=== PATIENT | female | born 1975 | race Caucasian/White ===

== ENCOUNTER 2023-06-07 10:09 | Emergency (ER) | payer OTHER, SELFPAY ==
[2023-06-07 10:13] VITALS: BP 130/92; PULSE 119; RESP 18; TEMP 36.6; O2SAT 97; BMI 26.9
[2023-06-07 10:32] VITALS: BP 138/83; PULSE 89; RESP 18; TEMP 36.9; O2SAT 96
[2023-06-07 10:39] VITALS: BP 138/83; PULSE 89; RESP 18; TEMP 36.9; O2SAT 97; BMI 25.7
--- NOTE | 2023-06-07 10:55 | ED.ANXIETY ---
HPI - Anxiety General Chief Complaint: Anxiety Stated Complaint: anxiety Time Seen by Provider: 06/07/23 10:35 Source: patient and family Mode of arrival: ambulatory History of Present Illness HPI narrative: 47-year-old female who presents with a recent loss of her uncle with whom she was very close, and thereafter developed insomnia which she thinks is significantly contributing to her anxiety and OCD. Her primary care doctor has been attempting to treat her with trazodone and Seroquel but patient states that this is not been helping at all. She denies any SI/HI and states that her last event occurred approximately 10 days ago and she was treated with Zoloft and states that the episodes seemed self resolve. She otherwise denies any medical history. Patient agreeable to meet with the crisis team. Related Data Allergies Allergy/AdvReac Type Severity Reaction Status Date / Time metoclopramide [From Reglan] AdvReac Anxiety Verified 06/07/23 10:40 Review of Systems Review of Systems: Pertinent positives and negatives as stated in HPI PMFSH Past Medical History Source: nursing notes reviewed Social History Social History Advance Directives: No Advance Directives Information Provided: Yes Do you have a plan to hurt others: No Plan Physical Exam Vital Signs: Vital Signs: Last Vital Signs Temp 98.5 F 06/07/23 10:39 Pulse 89 06/07/23 10:39 Resp 18 06/07/23 10:39 BP 138/83 06/07/23 10:39 Pulse Ox 97 06/07/23 10:39 O2 Del Method Room Air 06/07/23 10:39 BMI result Body Mass Index 25.7 VITAL SIGNS: Reviewed. GENERAL: Well developed, well nourished, in no acute distress. HEAD: Normocephalic/atraumatic EYES: PERRLA, EOMI EARS: Ext canals without abnormality NOSE: Nares patent bilateral OROPHARYNX: no oral lesions noted, posterior pharynx clear NECK: Supple, no adenopathy LUNGS: Normal breath sounds. No adventitious sounds or accessory muscle use. SpO2<97> CARDIOVASCULAR: Regular rate and rhythm without noted murmurs ABDOMEN: Soft, non-tender, non-distended with bowel sounds MUSCULOSKELETAL: No tenderness, deformities, or effusions noted on gross inspection. EXTREMITIES: No cyanosis, clubbing or edema. SKIN: Inspection of the skin reveals no rashes NEUROLOGIC: Alert and oriented x 4. Strength and sensation to light touch were grossly intact x 4, cranial nerves 2-12 are grossly intact PSYCH: Anxiety, depressed affect. Medications Administered Discontinued Medications Generic Name Dose Route Start Last Admin Trade Name Brooke PRN Reason Stop Dose Admin Diazepam 2 mg 06/07/23 10:54 06/07/23 11:08 Diazepam 2 Mg Tablet PO 06/07/23 10:55 2 mg ONCE ONE Administration Medical Decision Making Medical Decision Making [facility] Narrative: 47-year-old female with history and clinical presentation, DDX: Grief, depression, anxiety Provided patient with 2 mg Valium I reviewed all investigations and hematologic indices are negative for leukocytosis/anemia/thrombocytopenia. Chemistries to seizure negative for BG/electrolyte or liver enzyme derangements. Ethanol-undetectable. Patient is otherwise medically cleared for further evaluation by the care team. Patient evaluated by the care team and they feel that she is stable with discharge and they have provided patient with out patient resources and access, patient was encouraged to return should she feel that she may be a harm to herself. She does feel somewhat better and is otherwise discharged. Differential Diagnosis Differential Diagnoses: The differential diagnosis associated with the presentation includes Please see the discussion above Admission/Observation Consideration of admission/observation: Escalation of care including admission/observation considered Please see the discussion above Lab Data [facility] Lab Attestation statement: I reviewed the patient's lab results. Please see the discussion above 06/07/23 11:26 06/07/23 11:26 Labs: Lab Results 06/07/23 Range/Units 11:26 WBC 9.5 (4.8-10.8) X10*3/uL RBC 4.46 (4.20-5.50) X10*6/uL Hgb 14.2 (12.0-16.0) g/dl Hct 41.2 (37.0-47.0) % MCV 92.4 (80.0-98.0) fL MCH 31.8 (27.0-33.0) pg MCHC 34.5 (31.0-35.0) g/dl RDW 12.7 (11.0-16.0) % Plt Count 185 (160-400) X10*3/uL MPV 12.9 H (9.4-12.3) fL Immature Gran % (Auto) 0.1 (0.0-0.4) % Neut % (Auto) 78.9 H (45-73) % Lymph % (Auto) 11.6 L (20-40) % [place] % (Auto) 8.6 (2-11) % Eos % (Auto) 0.3 (0-4) % Baso % (Auto) 0.5 (0-2) % Lymph # (Auto) 1.1 L (1.2-4.9) X10*3/uL [place] # (Auto) 0.8 (0.1-1.2) X10*3/uL Eos # (Auto) 0.0 (0.0-0.4) X10*3/uL Baso # (Auto) 0.1 (0.0-0.2) X10*3/uL Abs Immat Gran (auto) 0.01 (0.00-0.03) X10*3/uL Absolute Neuts (auto) 7.5 (2.0-8.3) x10*3/uL Absolute Nucleated RBC 0.000 (0.0-0.012) X10*3/uL Nucleated RBC % (auto) 0.0 (0.0-0.2) /100WBC Sodium 140 (135-145) mmol/L Potassium 4.3 (3.3-5.1) mmol/L Chloride 106 (96-108) mmol/L Carbon Dioxide 26 (22-29) mmol/L Anion Gap 12 (12-20) BUN 11 (9-16) mg/dL Creatinine 0.86 (0.5-1.4) mg/dL Estim Creat Clear Calc 78.3 Estimated GFR > 60 Random Glucose 82 (60-115) mg/dL Calcium 9.3 (8.4-10.2) mg/dL Total Bilirubin 0.7 (0.0-1.0) mg/dL AST 15 (5-31) U/L ALT 14 (0-31) U/L Alkaline Phosphatase 71 (39-117) U/L Total Protein 6.9 (6.5-8.0) g/dL Albumin 4.1 (3.5-5.0) g/dL Ethyl Alcohol < 10 mg/dL Critical Care Time Critical Care Time Critical Care Time: Yes Total Critical Care Time: 45 Attestation: I personally attest to this time spent taking care of the patient. Discharge Plan Discharge Clinical Impression: Acute anxiety, Grief, Depression Patient Disposition: Home, Self-Care Instructions: Depression (ED), Anxiety (ED) Additional Instructions: Follow-up with your primary care doctor to further discuss prescription sleep medication. Do not hesitate to return to this emergency room if you ever began having feelings of wanting to harm yourself. Referrals: Betzy Germain NP [Nurse Practitioner] - Print Language: Uruguayan
[2023-06-07] MEDS: diazePAM 2 MG TABLET PO (11:08)
[2023-06-07 11:30] LABS: MANUAL DIFF FLAG NO
[2023-06-07 11:31] LABS: Basophils Absolute Auto 0.1 X10*3/uL (0.0-0.2); Basophils Percent Auto 0.5 % (0-2); Eosinophils Percent Auto 0.3 % (0-4); Hematocrit 41.2 % (37.0-47.0); Hemoglobin 14.2 g/dl (12.0-16.0); Imm Gran Abs Auto 0.01 X10*3/uL (0.00-0.03); Imm Gran Pct Auto 0.1 % (0.0-0.4); Lymphocytes Absolute Auto 1.1 X10*3/uL (1.2-4.9); Lymphocytes Percent Auto 11.6 % (20-40); Mean Corpuscular HGB Conc 34.5 g/dl (31.0-35.0); Mean Corpuscular Hemoglobin 31.8 pg (27.0-33.0); Mean Corpuscular Volume 92.4 fL (80.0-98.0); Mean Platelet Volume 12.9 fL (9.4-12.3); Monocytes Absolute Auto 0.8 X10*3/uL (0.1-1.2); Monocytes Percent Auto 8.6 % (2-11); Neutrophils Absolute Auto 7.5 x10*3/uL (2.0-8.3); Neutrophils Percent Auto 78.9 % (45-73); Platelet Count 185 X10*3/uL (160-400); Red Blood Count 4.46 X10*6/uL (4.20-5.50); Red Cell Distribution Width 12.7 % (11.0-16.0); White Blood Count 9.5 X10*3/uL (4.8-10.8)
[2023-06-07 11:46] LABS: Alanine Aminotransferase 14 U/L (0-31); Albumin Level 4.1 g/dL (3.5-5.0); Alkaline Phosphatase 71 U/L (39-117); Anion Gap 12 (12-20); Aspartate Amino Transferase 15 U/L (5-31); Bilirubin Total 0.7 mg/dL (0.0-1.0); Blood Urea Nitrogen 11 mg/dL (9-16); Calcium 9.3 mg/dL (8.4-10.2); Carbon Dioxide 26 mmol/L (22-29); Chloride 106 mmol/L (96-108); Creatinine Clr Calc Pharmacy 78.3; Estimated Glomerular Filt Rate > 60; Ethanol < 10 mg/dL; Glucose Random 82 mg/dL (60-115); Potassium 4.3 mmol/L (3.3-5.1); Sodium 140 mmol/L (135-145); Total Protein 6.9 g/dL (6.5-8.0)
[2023-06-07 12:49] LABS: HCG Quantitative < 2 mIU/mL
[2023-06-07 13:13] VITALS: BP 136/87; PULSE 106; RESP 18; TEMP 36.9; O2SAT 97
== END 2023-06-07 13:14 | disposition home or self-care (01) ==
PROVIDERS: Emergency Provider Student in an Organized Health Care Education/Training Program
DX: F41.9 Anxiety disorder, unspecified (principal); F43.21 Adjustment disorder with depressed mood; F32.A Depression, unspecified
CPT/HCPCS: 36415; 80053; 80307; 84702; 85025; 99283; S9485

== ENCOUNTER → 2023-07-04 09:00 | Outpatient (BNV) | payer OTHER, SELFPAY | PROVIDERS: Visit Provider Psychiatry & Neurology Psychiatry | DX: F42.9 Obsessive-compulsive disorder, unspecified (principal); F41.1 Generalized anxiety disorder | CPT/HCPCS: 90792; 99213; 99499 ==

== ENCOUNTER 2023-07-18 09:00 | Outpatient (RCR) | payer OTHER, SELFPAY ==
[2023-07-04 13:04] VITALS: BP 110/88; PULSE 85; TEMP 37.3
[2023-07-04 13:06] VITALS: BMI 25.5
--- NOTE | 2023-07-04 13:51 | PC.NURSE ---
Patient is a 47 year old female who was referred to PHP by crisis and also advised to attend PHP by her PCP d/t increased depression, was having passive suicidal thoughts a few weeks ago stating she would be better off , struggling with an increase in OCD sxs with excessive hand washing and fixated on germs. Reports insomnia sleeping 1/2-1 hr a night even with Trazodone. Patient also attended Respite for one day after meeting with crisis however went for one day and left as there were too many people there. Patient is alert and oriented x4. Calm and cooperative. Thoughts are clear and logical. Presented with depressed mood, anxious, tearful affect at times. Denied SI, no HI. She was given a copy of her safety plan if needed. Reports stressors including work hour changes, uncle passing, finalization of divorce, and recently found out her boyfriend of a year was cheating on her. Patient reports she was drinking 2 shots of Vodka after work daily however has stopped alcohol use for the past few months. Reports she has cut down her caffeine intake and is planning on cutting down smoking cigarettes a few hours before bed. She stated she quit smoking and recently started back up d/t her symptoms. Does not want to quit at this time. She describes her self as a germophobe' who has been excessively washing her hands d/t increase in her OCD sxs. Medications reconciled with patient and patient's pharmacy. She stated she is not taking Seroquel anymore as she did not like the way it made her feel. Taking all other medications as prescribed. 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 She is taking a HAYLEY from work d/t her mental health.
--- NOTE | 2023-07-04 15:07 | HO.PHP ---
Client's case has been opened and reviewed in treatment team.
--- NOTE | 2023-07-04 21:49 | P.HPPSP_ITS ---
HPI Date of Service: 07/04/23 Chief Complaint: OCD Sources of Information: patient interviewed, chart reviewed and crisis/core team assessment reviewed HPI Narrative: Patient is a 47 year old female, with history of OCD, generalized anxiety who was referred by her PCP office for [facility] Crisis eval for worsening anxiety, depression, OCD symptoms in the context of psychosocial stressors including familial loss, divorce and other relationship stressors. She reports a history of depression back in 2008, was on Zoloft for a few years and then remained relatively stable even off medication for the past 10 years until a recent string of setbacks and losses. Everything happened all at once . She reports finding out her boyfriend cheated on her in March just after losing her uncle earlier that month due to a hospital-inquired infection, which likely exacerbated her OCD-obsessions with contamination/germaphobia, as well as triggering grief related to losing her father 17 yrs ago. She also reports just getting through a nasty divorce in May, but continuing to deal with her ex with whom she shares custody of their children. She reports her mood as very depressed, high anxiety, profound anhodenia with feelings of helplessness, hopelessness and passive SI. Sleep is particularly problematic. She states she is exhausted but has been unable to sleep, appetite and energy are low. Past Psychiatric History: No IPLOC or detox admissions Engaged in [facility] [employer] x2 back in 2011 at [place] Denies any suicide attempts or self harming behaviors Hx of Depression (after her 2nd child in 2008) was treated for 2-3 years, namely on Zoloft, has been off medications for 10 years Long hx of OCD (germs/handwashing) since teens/early adulthood Therapist: Yaquelin Jones [facility] Psych provider: none PCP: Betzy Germain INTERNAL MEDICINE PHYSICIAN ASSISTANT Previous trials: Zoloft (helped with PPD, not so much for OCD), Seroquel 100 mg (did not help with sleep), hydroxyzine CURRENT MEDICATIONS: Lexapro 5 mg qd (started 3 weeks ago) trazodone 50-100 mg qhs PRN sleep ( not helping ) hydroxyzine 25 mg TID prn (1-2 times daily, makes me tired during the day but not helping with sleep) vitamin B complex [facility] Medical History (Updated 07/09/23 @ 07:56 by Heidi Ibarra MD) delivery delivered Family History: Anxiety on paternal side Social History: . 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, was rehired doing administrative transfers Substance History: Denies Trauma History: Denies Diagnostics Vital Signs (24Hr): Vital Signs - 24 hr 07/04/23 13:04 Temperature 99.2 F Pulse Rate 85 Blood Pressure 110/88 BMI result Body Mass Index 25.5 Meds/Allergies Meds Home Medications ?Medication ?Instructions ?Recorded ?Confirmed ?Type vitamin B complex 1 cap PO DAILY 07/04/23 07/04/23 History Allergies Allergies Allergy/AdvReac Type Severity Reaction Status Date / Time metoclopramide [From Reglan] AdvReac Anxiety Verified 06/07/23 10:40 Mental Status Exam Mental Status Exam Narrative: Alert, oriented, in no acute distress. Anxious, cooperative, engaged. No psychomotor agitation or neurovegetative retardation. Eye contact maintained. Mood depressed, affect dysphoric, anxious, tearfulness. Speech normal. Thought process scattered, linear, coherent. Thought content related to stressors, feeling overwhelmed, exhausted, endorses executive dysfunction, feelings of helplessness, hopelessness, passive SI, without suicidal intention,urge or plan. Denies any aggressive ideation. No paranoia or delusional content elicited. No evidence of psychosis. Insight and judgment fair but adequate. Assessment & Plan Assessment & Plan (1) Obsessive compulsive disorder: Status: Acute Code(s): F42.9 - Obsessive-compulsive disorder, unspecified (2) Generalized anxiety disorder: Status: Acute Code(s): F41.1 - Generalized anxiety disorder Plan Admit to PHP VS reviewed: rhona, BP 110/88;?85 bpm start Luvox 25 mg qhs, plan to titrate to 50 mg qhs (in 2-4 days, as tolerated) start clonazepam 1 mg qhs PRN sleep (other considerations include olanzapine for sleep vs zolpidem (patient reluctant to start olanzapine given tiredness experienced on quetiapine) may also consider risperidone to target OCD sx as well as sleep continue other regular medications? if Luvox tolerated, will taper off Lexapro will switch trazodone to PRN basis and likely discontinue due to drug interactions with fluvoxamine/SSRIs Routine lab work ordered EKG, routine for baseline QTc for medication considerations UDS as indicated MassPat reviewed Safety plan reviewed Continue to monitor as per protocol Patient educated on: diagnosis, medication risk/benefits and substance abuse Informed Consent: understands Reason for continued partial hosp. stay Substantial Risk for: harm to self, inability to function, rapid decompensation and med/psych decompensation Certification I certify that partial hospital treatment is medically necessary due to the symptoms and problems resulting from the patient's mental illness and the failure to treat the patient at the partial hospital level of care would likely result in the patient requiring inpatient psychiatric care which could not be prevented at a less intensive level of care. Time Spent With Patient Time: Total time managing care of this patient today _60___ minutes.
--- NOTE | 2023-07-09 23:14 | HO.PHPPROGNO ---
Subjective Subjective Date of Service: 07/09/23 Reason For Visit: OCD Interim History: Patient has been taking 50 mg of fluvoxamine at night, sleep has improved modestly but still feeling tired in the morning and all day. She reports her mood as tired anxiety has been ok . She says SI is still there but in the background. She continues to take clonazepam at 0.5 mg in AM and 1.5 mg qhs. I suggest we start lowering the clonazepam which may be exacerbating her tiredness. Also given plan to continue titrating fluvoxamine, will need to cut back on clonazepam during the day and suggest taking 1/4 tablet once or twice a day for anxiety but on an as needed only basis now. She denies any thoughts of harming self or others at this time. OCD symptoms persist unchanged. Medication Compliance: Yes Side effects from medications: Yes (as noted) Attending Groups: Yes Review of Systems Acute medical concerns: No Mental Status Exam Mental Status Exam Narrative: Alert, oriented, in no acute distress. Anxious, cooperative, engaged. No psychomotor agitation or neurovegetative retardation. Eye contact maintained. Mood depressed, affect dysphoric, anxious, tearfulness. Speech normal. Thought process scattered, linear, coherent. Thought content related to stressors, feeling overwhelmed, exhausted, endorses executive dysfunction, feelings of helplessness, hopelessness, passive SI, without suicidal intention,urge or plan. Denies any aggressive ideation. No paranoia or delusional content elicited. No evidence of psychosis. Insight and judgment fair but adequate. Diagnostics Vital Signs (24Hr): BMI result Body Mass Index 25.5 Assessment & Plan Assessment & Plan (1) Obsessive compulsive disorder: Status: Acute Code(s): F42.9 - Obsessive-compulsive disorder, unspecified (2) Generalized anxiety disorder: Status: Acute Code(s): F41.1 - Generalized anxiety disorder Plan increase Luvox to 75 mg/d starting tomorrow, by end of week will increase to ER formulation 100 mg/d lower clonazepam to 0.25-0.5 mg PRN anxiety and lower HS dose to 1 mg Patient educated on: diagnosis and medication risk/benefits Informed Consent: understands Reason for contiued partial hosp. stay Substantial Risk for: inability to function, rapid decompensation and med/psych decompensation Certification I certify that partial hospital treatment is medically necessary due to the symptoms and problems resulting from the patient's mental illness and the failure to treat the patient at the partial hospital level of care would likely result in the patient requiring inpatient psychiatric care which could not be prevented at a less intensive level of care. Total time managing care of this patient today __30__ minutes. Discharge Plan Discharge Attending provider: Heidi Ibarra Additional Instructions: Gaby has a med provider appointment scheduled for August 01, 2023 at 9:40 AM via telehealth with Joey Singh through [facility]. Gaby has an OP therapy appointment with Lea Hodge which is scheduled on July 22, 2023 at 11 AM at the [address] [place] [address]. Medications: New fluvoxamine 100 mg capsule,extended release 24hr 100 mg PO BEDTIME Qty: 30 0RF risperidone 0.25 mg tablet 0.25 - 0.5 mg PO BEDTIME Qty: 30 0RF acetylcysteine 600 mg capsule 600 mg PO DAILY Qty: 30 0RF fluvoxamine 50 mg tablet 50 mg PO QAM 30 Days Qty: 30 0RF Rx Instructions: =DOSE CHANGE= fluvoxamine 100 mg tablet 100 mg PO BEDTIME 30 Days Qty: 30 0RF Rx Instructions: =DOSE CHANGE= Continued vitamin B complex Capsule 1 cap PO DAILY clonazepam 1 mg tablet See Rx Instructions .ROUTE .COMPLEX Qty: 30 0RF Rx Instructions: administer 30 minutes before bedtime; take 1/2 tablet in AM prn anxiety; take 1 tablet po qhs prn sleep Changed fluvoxamine 50 mg tablet 50 mg PO BEDTIME Qty: 30 0RF Discontinued trazodone 50 mg Tablet 50 - 100 mg PO BEDTIME PRN (Reason: Insomnia) Rx Instructions: May increase to 2 tabs if needed. hydroxyzine HCl 25 mg tablet 25 mg PO TID PRN (Reason: anxiety) escitalopram oxalate 5 mg tablet 5 mg PO DAILY Stand Alone Forms: Patient Portal Discharge page Patient Education: Generalized Anxiety Disorder (GEN) Print Language: Kinyarwanda
--- NOTE | 2023-07-11 16:33 | HO.PHP ---
Gaby was not scheduled for program today due to having a med provider appointment today through [facility]. Gaby will be in attendance to program tomorrow.
--- NOTE | 2023-07-15 23:15 | HO.PHPPROGNO ---
Subjective Subjective Date of Service: 07/15/23 Reason For Visit: OCD Interim History: Patient seen for follow-up Continues on fluvoxamine, currently at 75 mg. OCD symptoms are still pretty consuming, causing anxiety and really impacting her mood. WIll plan to increase to 100 mg ER at the end of the week. We discussed addition of risperidone to target OCD symptoms and anxiety. She reports some on and off again nausea, she reports having gotten over her period 6 days ago, but note that she has been experiencing heavier periods sometimes lasting over 2 weeks at atime, occurring every 3 weeks so spending more of the time bleeding on a monthly basis. Nausea seems to be related but is difficult to tell if medication could also be exacerbating this. She has still not gotten her routine lab work done but plans to do so today. Denies any SI currently but is still feeling depressed she Reports transient SI without urge, intention or plan. Medication Compliance: Yes Side effects from medications: No Attending Groups: Yes Review of Systems Acute medical concerns: No Mental Status Exam Mental Status Exam Narrative: Alert, oriented, in no acute distress. Eye contact maintained. Mood anxious, depressed, affect constricted, anxious. Speech normal. Thought process scattered, linear, coherent. Thought content related to stressors, feelings of helplessness, transient passive SI, without suicidal intention,urge or plan. Denies any aggressive ideation. No paranoia or delusional content elicited. No evidence of psychosis. Insight and judgment fair but adequate. Diagnostics Vital Signs (24Hr): BMI result Body Mass Index 25.5 Assessment & Plan Assessment & Plan (1) Obsessive compulsive disorder: Status: Acute Code(s): F42.9 - Obsessive-compulsive disorder, unspecified (2) Generalized anxiety disorder: Status: Acute Code(s): F41.1 - Generalized anxiety disorder Plan start risperidone 0.25 mg qhs continue Luvox 75 mg/d starting tomorrow, will increase to ER formulation 100 mg/d in 4 days continue clonazepam 1 mg QHS and to 0.25-0.5 mg PRN anxiety start NAC 600 mg qd - to help target OCD sx (Clin Psychopharmacol Neurosci 2015 May;13(1):12-24) pending lab work continue to monitor Patient educated on: diagnosis and medication risk/benefits Informed Consent: understands Reason for contiued partial hosp. stay Substantial Risk for: inability to function and med/psych decompensation Certification I certify that partial hospital treatment is medically necessary due to the symptoms and problems resulting from the patient's mental illness and the failure to treat the patient at the partial hospital level of care would likely result in the patient requiring inpatient psychiatric care which could not be prevented at a less intensive level of care. Total time managing care of this patient today _30___ minutes. Discharge Plan Discharge Attending provider: Heidi Ibarra Additional Instructions: Gaby has a med provider appointment scheduled for August 01, 2023 at 9:40 AM via telehealth with Joey Singh through [facility]. Gaby has an OP therapy appointment with Lea Hodge which is scheduled on July 22, 2023 at 11 AM at the [facility]. Medications: New fluvoxamine 100 mg capsule,extended release 24hr 100 mg PO BEDTIME Qty: 30 0RF risperidone 0.25 mg tablet 0.25 - 0.5 mg PO BEDTIME Qty: 30 0RF acetylcysteine 600 mg capsule 600 mg PO DAILY Qty: 30 0RF fluvoxamine 50 mg tablet 50 mg PO QAM 30 Days Qty: 30 0RF Rx Instructions: =DOSE CHANGE= fluvoxamine 100 mg tablet 100 mg PO BEDTIME 30 Days Qty: 30 0RF Rx Instructions: =DOSE CHANGE= Continued vitamin B complex Capsule 1 cap PO DAILY clonazepam 1 mg tablet See Rx Instructions .ROUTE .COMPLEX Qty: 30 0RF Rx Instructions: administer 30 minutes before bedtime; take 1/2 tablet in AM prn anxiety; take 1 tablet po qhs prn sleep Changed fluvoxamine 50 mg tablet 50 mg PO BEDTIME Qty: 30 0RF Discontinued trazodone 50 mg Tablet 50 - 100 mg PO BEDTIME PRN (Reason: Insomnia) Rx Instructions: May increase to 2 tabs if needed. hydroxyzine HCl 25 mg tablet 25 mg PO TID PRN (Reason: anxiety) escitalopram oxalate 5 mg tablet 5 mg PO DAILY Stand Alone Forms: Patient Portal Discharge page Patient Education: Generalized Anxiety Disorder (GEN) Print Language: Hungarian
--- NOTE | 2023-07-16 10:06 | HO.PHP ---
Gaby was not scheduled for today due to having a med provider appointment.
--- NOTE | 2023-07-17 13:19 | HO.PHP ---
[facility] staff member faxed a referral over to [facility] for OP therapy and Med Management for Gaby. PHP staff member is awaiting a call with scheduled appointment times and dates.
--- NOTE | 2023-07-18 22:02 | HO.PHPPROGNO ---
Subjective Subjective Date of Service: 07/18/23 Reason For Visit: OCD Interim History: Patient seen for follow-up, anticipating discharge at the end of program today.? She reports having gone to lab to get her lab work done an hour ago. SHe says she kept forgetting to get it done earlier in the week. Mood is still depressed but has tried to stay productive, focused on self care and daily tasks. Continues to take medications daily and is on fluvoxamine which was split in 25 mg in am and 50 mg at night. Sleep has been not great , risperidone only started on this last night at 1/2 tablet thus far. Also she has tried cutting back on clonazepam to 1 mg and 0.5 mg in AM, alternatively can just take 1.5 mg at night especially if tired in the AM and may help more with sleep. She is due to switch to taking long acting fluvoxamine at 100 mg starting tonight and will continue at 100 mg ER qhs until she follows up with her provider. She has upcoming appointment on 07/21 and 07/31 for therapy and med provider. Denies thoughts of harming self or others at this time. Denies any aggressive ideation or HI. Denies any paranoia or AH or VH. Medication Compliance: Yes Side effects from medications: No Attending Groups: Yes Review of Systems Acute medical concerns: No Mental Status Exam Mental Status Exam Narrative: Alert, oriented, in no acute distress. Eye contact maintained. Mood depressed but stable. Affect subdued. Speech normal. Thought process linear, coherent. Thought content related to stressors, passive SI, without suicidal intention,urge or plan. Denies any aggressive ideation. No paranoia or delusional content elicited. No evidence of psychosis. Insight and judgment fair but adequate. Diagnostics Vital Signs (24Hr): BMI result Body Mass Index 25.5 Assessment & Plan Assessment & Plan (1) Obsessive compulsive disorder: Status: Acute Code(s): F42.9 - Obsessive-compulsive disorder, unspecified (2) Generalized anxiety disorder: Status: Acute Code(s): F41.1 - Generalized anxiety disorder Plan Discharge from [facility] continue fluoxamine, increasing to ER 100 mg qhs starting tonight (from IR 75 mg/d) continue risperidone 0.25 - 0.5 mg qhs continue NAC 500-1000 mg qd as tolerated continue other regular medications Refills sent to pharmacy Will defer further medication management to outpatient provider *Safety plan reviewed *Discharge Diagnoses reviewed with patient, as well as treatment course, discharge plan (including medication regime, medication management, potential side effects) as well as treatment rationale were also revisited Patient educated on: diagnosis and medication risk/benefits Guardian/Caregiver educated on: TMS Informed Consent: understands Reason for contiued partial hosp. stay Substantial Risk for: stable for discharge Certification I certify that partial hospital treatment is medically necessary due to the symptoms and problems resulting from the patient's mental illness and the failure to treat the patient at the partial hospital level of care would likely result in the patient requiring inpatient psychiatric care which could not be prevented at a less intensive level of care. Total time managing care of this patient today ____ minutes. Discharge Plan Discharge Attending provider: Heidi Ibarra Additional Instructions: Gaby has a med provider appointment scheduled for August 01, 2023 at 9:40 AM via telehealth with Joey Singh through [facility]. Gaby has an OP therapy appointment with Lea Hodge which is scheduled on July 22, 2023 at 11 AM at [address] [place] [address]. Medications: New fluvoxamine 100 mg capsule,extended release 24hr 100 mg PO BEDTIME Qty: 30 0RF risperidone 0.25 mg tablet 0.25 - 0.5 mg PO BEDTIME Qty: 30 0RF acetylcysteine 600 mg capsule 600 mg PO DAILY Qty: 30 0RF fluvoxamine 50 mg tablet 50 mg PO QAM 30 Days Qty: 30 0RF Rx Instructions: =DOSE CHANGE= fluvoxamine 100 mg tablet 100 mg PO BEDTIME 30 Days Qty: 30 0RF Rx Instructions: =DOSE CHANGE= Continued vitamin B complex Capsule 1 cap PO DAILY clonazepam 1 mg tablet See Rx Instructions .ROUTE .COMPLEX Qty: 30 0RF Rx Instructions: administer 30 minutes before bedtime; take 1/2 tablet in AM prn anxiety; take 1 tablet po qhs prn sleep Changed fluvoxamine 50 mg tablet 50 mg PO BEDTIME Qty: 30 0RF Discontinued trazodone 50 mg Tablet 50 - 100 mg PO BEDTIME PRN (Reason: Insomnia) Rx Instructions: May increase to 2 tabs if needed. hydroxyzine HCl 25 mg tablet 25 mg PO TID PRN (Reason: anxiety) escitalopram oxalate 5 mg tablet 5 mg PO DAILY Stand Alone Forms: Patient Portal Discharge page Patient Education: Generalized Anxiety Disorder (GEN) Print Language: Norwegian
--- NOTE | 2023-07-19 15:10 | PM.EVENT ---
Event Note Date of Service: 07/19/23 Event Note: Spoke with patient, she reports that pharmacy does not have long acting and is requesting refill of short acting for 50 mg BID which was sent. Reviewed lab work that has returned thus far thus far CBC, electrolytes, LFTs, glucose, pending results on remainder of labs. Time Spent With Patient Time: Total time managing care of this patient today __10__ minutes.
== END 2023-07-18 23:59 | disposition home or self-care (01) ==
LOC: HO.PHPA 09:00
PROVIDERS: Visit Provider Psychiatry & Neurology Psychiatry
DX: F42.9 Obsessive-compulsive disorder, unspecified (principal); F41.1 Generalized anxiety disorder
CPT/HCPCS: 90791; 90853

== ENCOUNTER 2023-07-18 12:36 | Outpatient (REF) | payer OTHER, SELFPAY ==
[2023-07-18 14:08] LABS: Appearance Urine Turbid; Color Urine Dark Yellow; Glucose Urine UA Negative (Negative); Leukocyte Esterase Urine Negative (Negative); Nitrite Urine Negative (Negative); PH 7.5 (5.0-9.0); UMIC TRIGGER UA YES; Urine Blood Trace (Negative); Urine Ketones Trace mg/dL (Negative); Urine Protein Negative (Neg-Trace)
[2023-07-18 14:10] LABS: Estimated Average Glucose 100 mg/dL; Hemoglobin A1c % 5.1 % (<6.0)
[2023-07-18 14:13] LABS: Bacteria Urine 1+ (None Seen); Hyaline Casts Urine 0-2 /LPF (0-2); WBC Urine 0-5 /HPF (0-5)
[2023-07-18 14:15] LABS: Basophils Percent Auto 0.5 % (0-2); Eosinophils Absolute Auto 0.1 X10*3/uL (0.0-0.4); Eosinophils Percent Auto 1.2 % (0-4); Hematocrit 40.6 % (37.0-47.0); Hemoglobin 13.8 g/dl (12.0-16.0); Imm Gran Abs Auto 0.02 X10*3/uL (0.00-0.03); Imm Gran Pct Auto 0.3 % (0.0-0.4); Lymphocytes Absolute Auto 1.2 X10*3/uL (1.2-4.9); Lymphocytes Percent Auto 15.6 % (20-40); MANUAL DIFF FLAG SCAN; Mean Corpuscular Hemoglobin 32.5 pg (27.0-33.0); Mean Corpuscular Volume 95.5 fL (80.0-98.0); Mean Platelet Volume 13.5 fL (9.4-12.3); Monocytes Absolute Auto 0.6 X10*3/uL (0.1-1.2); Monocytes Percent Auto 7.2 % (2-11); Neutrophils Absolute Auto 5.8 x10*3/uL (2.0-8.3); Neutrophils Percent Auto 75.2 % (45-73); PLT CLUMP 1; Red Blood Count 4.25 X10*6/uL (4.20-5.50); Red Cell Distribution Width 12.7 % (11.0-16.0); SCAN SMEAR FLAG 1
[2023-07-18 14:16] LABS: White Blood Count 7.7 X10*3/uL (4.8-10.8)
[2023-07-18 14:48] LABS: Platelet Count 188 X10*3/uL (160-400)
[2023-07-18 14:50] LABS: SLIDE REVIEW VERIFIED
[2023-07-18 15:07] LABS: Parathyroid Hormone Intact 52.7 pg/mL (8.7-77.1)
[2023-07-18 15:11] LABS: Alanine Aminotransferase 36 U/L (0-31); Albumin Level 4.3 g/dL (3.5-5.0); Alkaline Phosphatase 75 U/L (39-117); Anion Gap 11 (12-20); Aspartate Amino Transferase 16 U/L (5-31); Bilirubin Total 0.7 mg/dL (0.0-1.0); Blood Urea Nitrogen 12 mg/dL (9-16); Calcium 9.5 mg/dL (8.4-10.2); Carbon Dioxide 30 mmol/L (22-29); Chloride 104 mmol/L (96-108); Cholesterol 177 mg/dL (<200); Estimated Glomerular Filt Rate > 60; Glucose Fasting 74 mg/dL (60-99); HDL Cholesterol 50 mg/dL (>40); Iron 66 mcg/dL (30-160); LDL Cholesterol Calculated 101 mg/dL (<100); Magnesium 2.1 mg/dL (1.6-2.6); Percent Iron Saturation 20 % (15-50); Phosphorus 3.2 mg/dL (2.7-4.5); Sodium 141 mmol/L (135-145); Total Iron Binding Capacity 329 mcg/dL (228-428); Total Protein 7.1 g/dL (6.5-8.0); Triglycerides 134 mg/dL (<150); Unsaturated Iron Binding 263 ug/dL
[2023-07-18 15:30] LABS: Free T4 (Free Thyroxine) 0.98 ng/dL (0.71-1.85); Vitamin D 25-OH Total 33.5 ng/mL (>30)
[2023-07-18 15:36] LABS: Folate 16.2 ng/mL (> or = 4.0); Vitamin B12 688 pg/mL (200-900)
[2023-07-20 04:29] LABS: DHEA Sulfate 238 mcg/dL (15-205); Triiodothyronine T3 Total 102 ng/dL (76-181)
[2023-07-20 05:29] LABS: Follicle Stimulating Hormone 9.9 mIU/mL; Lutenizing Hormone 4.5 mIU/mL; Prolactin 5.1 ng/mL
[2023-07-25 02:04] LABS: Estradiol Ultra Sensitive 209 pg/mL
[2023-07-25 13:59] LABS: Pregnenolone, LC/MS 142 ng/dL (22-237)
[2023-07-25 18:57] LABS: Progesterone <0.1 ng/mL
[2023-07-26 07:14] LABS: Estrone 157 pg/mL
[2023-07-30 20:23] LABS: MTHFR Mutation Detection POSITIVE
[2023-07-31 17:47] LABS: Testosterone, Free 3.3 pg/mL (0.1-6.4); Testosterone, Total 29 ng/dL (2-45)
== END 2023-07-18 12:37 | disposition home or self-care (01) ==
LOC: HO.LAB 12:36
PROVIDERS: PCP Nurse Practitioner Family; Visit Provider Psychiatry & Neurology Psychiatry
DX: F42.9 Obsessive-compulsive disorder, unspecified (principal); F41.3 Other mixed anxiety disorders; N95.1 Menopausal and female climacteric states
CPT/HCPCS: 36415; 80053; 80061; 81001; 81003; 81291; 82306; 82607; 82627; 82670; 82679; 82746; 83001; 83002; 83036; 83540; 83735; 83970; 84100; 84143; 84144; 84146; 84402; 84403; 84439; 84443; 84480; 84481; 85025